=== PATIENT | male | born 1990 | race Caucasian/White ===

== ENCOUNTER 2019-08-03 12:15 | Observation (INO) | payer OTHER ==
[~2019-08-03] VITALS: Ht 182.9 cm; Wt 67.0 kg
[~2019-08-03 12:15] MED LIST: FAMO20TA8 PO; INSU100V36 SQ; INSU100V9 SQ
[2019-08-03] MEDS ORDERED: ondansetron/PF 4mg/2ml inj IV STA (13:04)
[2019-08-03] MEDS ORDERED: normal saline 1000ml 1,000 ML IV STA (13:04)
--- NOTE | 2019-08-03 13:06 | NUR ---
BREAK NOTE:SPOKE TO DR. HOFFMAN REGARDING PATIENT,MADE AWARE THAT PATIENT IS HAVING 10/10 INTRASCTABLE ABDOMINAL PAIN.NEW ORDER NOTED AND CARRIED OUT.
[2019-08-03] MEDS ORDERED: morphine 4 MG/ML inj SYRINge IV STA (13:08)
[2019-08-03] MEDS ORDERED: ondansetron/PF 4mg/2ml inj IV ONE (13:40)
[2019-08-03] MEDS ORDERED: morphine 4 MG/ML inj SYRINge IV ONE (13:40)
[2019-08-03] MEDS ORDERED: normal saline 1000ML IV soln IVB ONE (13:40)
[2019-08-03 13:55] LABS: BASOPHILS # (AUTO) 0.1 X10'3 (0-0.2); BASOPHILS % (AUTO) 0.8 % (0-1); EOSINOPHILS # (AUTO) 0.4 X10'3 (0-0.9); EOSINOPHILS % (AUTO) 4.6 % (0-6); HEMATOCRIT 47.7 % (42.0-52.0); HEMOGLOBIN 15.7 g/dl (14.0-17.9); LYMPHOCYTES # (AUTO) 1.9 X10'3 (1.1-4.8); LYMPHOCYTES % (AUTO) 24.2 % (21-51); MEAN CORPUSCULAR HEMOGLOBIN 27.9 PG (27.0-31.0); MEAN CORPUSCULAR VOLUME 84.6 FL (78-98); MEAN PLATELET VOLUME 9.5 FL (7.4-10.4); MONOCYTES # (AUTO) 0.5 X10'3 (0-0.9); MONOCYTES % (AUTO) 5.8 % (2-12); NEUTROPHILS # (AUTO) 5.1 X10'3 (1.8-7.7); NEUTROPHILS % (AUTO) 64.6 % (42-75); PLATELET COUNT 281 X10'3 (140-440); RED BLOOD COUNT 5.64 X10'6 (4.70-6.10); RED CELL DISTRIBUTION WIDTH 13.4 % (11.5-14.5); WHITE BLOOD COUNT 7.9 X10'3 (4.5-11.0)
[2019-08-03 14:12] LABS: ALANINE AMINOTRANSFERASE 37 U/L (12-78); ALBUMIN 4.8 G/DL (3.4-5.0); ALBUMIN/GLOBULIN RATIO 1.4 (1.1-1.5); ALKALINE PHOSPHATASE 63 IU/L (46-116); ANION GAP 23 (8-16); ASPARTATE AMINO TRANSFERASE 18 U/L (10-37); BLOOD UREA NITROGEN 20 MG/DL (7-18); CALCIUM 10.1 MG/DL (8.5-10.1); CHLORIDE 95 MMOL/L (99-107); CREATININE 1.11 MG/DL (0.60-1.10); ETHANOL < 0.010 GM/DL (0.0-0.010); GLUCOSE 376 MG/DL (70-104); LIPASE < 50 U/L (73-393); POTASSIUM 5.2 MMOL/L (3.5-5.1); SODIUM 134 MMOL/L (135-145); TOTAL CARBON DIOXIDE 15.8 MMOL/L (24-32); TOTAL PROTEIN 8.2 G/DL (6.4-8.2); eGFR 79 ML/MIN
--- NOTE | 2019-08-03 14:15 | NUR ---
pt is displaying pain and verbalizing it at 10/10, pt's family states that dilaudid is what works for the pt, provider was made aware, no new orders received.
--- NOTE | 2019-08-03 14:30 | NUR ---
Spoke to Dr. Titus regarding samir's request for dilaudid since morphine did not help alleviate patient's pain,per Dr. Titus he will not order dilaudid because we dont have Md errol made aware that samir/armored service technician said she called pharmacy and that "they will get it ready for her when order is available".No new order at this time.
[2019-08-03] MEDS ORDERED: insulin regular, human 10 units/0.1 ml syringe IV ONE ×2 (14:35→16:25)
[2019-08-03] MEDS ORDERED: HYDROmorphone 1 mg/ml syringe IV ONE (14:45)
[2019-08-03] MEDS ORDERED: metoclopramide 5 mg/ml inj IV ONE ×2 (14:50→16:25)
[2019-08-03 15:31] LABS: CLARITY,URINE CLEAR (Clear); COLOR,URINE YELLOW (Yellow); GLUCOSE, URINE 500 mg/dl (Neg); KETONES,URINE >=80 mg/dl (Neg); LEUKOCYTE ESTERASE ,URINE NEGATIVE (Neg); NITRITES, URINE NEGATIVE (Neg); OCCULT BLOOD,URINE TRACE-INTACT (Neg); PH,URINE 5.5 (4.8-8.0); PROTEIN,URINE NEGATIVE (Neg); UROBILINOGEN,URINE 0.2 E.U/dL (0.2-1.0)
[2019-08-03 15:32] LABS: UA COLLECTION TYPE URINAL
[2019-08-03 15:42] LABS: BACTERIA,URINE NONE SEEN /HPF (Neg); RBC,URINE NONE SEEN /HPF (0-2); SQUAMOUS EPITHELIAL CELL,UR FEW /LPF (FEW)
[2019-08-03 15:45] LABS: WBC,URINE 0-4 /HPF (0-4)
--- NOTE | 2019-08-03 16:43 | NUR ---
Spoke with pt. re insulin administration and insulin pump being on. Pt. instructed to turn off pump at this time and pt. was agreeable. Blood glucose to be monitored by nursing staff while hospitalized.
[2019-08-03] MEDS ORDERED: INSU100V11 (17:15)
[2019-08-03] MEDS ORDERED: METO5TAB98 PO (17:15)
[2019-08-03] MEDS ORDERED: HUMALOG INJ (17:31)
[2019-08-03] MEDS ORDERED: PUMP INJ (17:31)
[2019-08-03] MEDS ORDERED: sodium bicarbonate (8.4%) inj. 50 MEQ in dextrose 5% water 500ml 250 ML IV PRN (17:48)
[2019-08-03] MEDS ORDERED: insulin regular, DKA only 100 UNIT in normal saline 100ml IV soln 99 ML IV SCH ×2 (17:48)
[2019-08-03] MEDS ORDERED: normal saline 1000ml 1,000 ML IV SCH (17:48)
[2019-08-03] MEDS ORDERED: sodium bicarbonate (8.4%) inj. 100 MEQ in dextrose 5% water 500ml 500 ML IV PRN (17:48)
[2019-08-03] MEDS ORDERED: sodium phosphate inj. 15 MMOL in dextrose 5%-water 150 ML IV PRN (17:50)
[2019-08-03] MEDS ORDERED: sodium phosphate inj. 30 MMOL in dextrose 5%-water 250 ML IV PRN (17:50)
[2019-08-03] MEDS ORDERED: insulin regular, human vial - multi-dose IV PRN (17:50)
[2019-08-03] MEDS ORDERED: potassium Cl 20 mEq SR tablet PO PRN ×2 (17:50)
[2019-08-03] MEDS ORDERED: Neutra Phos packet PO PRN (17:50)
[2019-08-03] MEDS ORDERED: potassium CL 10mEq/100ml bag 100 ML IV PRN ×2 (17:50)
[2019-08-03] MEDS ORDERED: HYDROmorphone inj. 0.5 MG/0.5 ML DISP.SYRIN IV PRN (17:50)
[2019-08-03] MEDS ORDERED: bisacodyl 10mg suppository rectal RC PRN (17:50)
[2019-08-03] MEDS ORDERED: metoclopramide 5 mg/ml inj IV PRN (17:50)
[2019-08-03] MEDS ORDERED: acetaminophen 325mg tablet PO PRN (17:50)
[2019-08-03] MEDS ORDERED: HYDROmorphone 1 mg/ml syringe IV PRN (17:50)
[2019-08-03 17:56] LABS: ABG BASE EXCESS -14.8 mmol/L (-2.0-3.0); ABG HCO3 11.4 mmol/L (22.0-26.0); ABG OXYGEN SATURATION 95.1 % (95-98); ABG PCO2 (T) 28.6 mmHg (35.0-45.0); ABG PH (T) 7.218 (7.350-7.450); ALLEN'S TEST Positive; FCOHb 0.6 % (0.5-1.5); FMetHb 0.4 % (0.3-1.12); FO2Hb 94.1 % (94-100); TOTAL HEMOGLOBIN 14.3 G/dl (14.0-17.9)
[2019-08-03] MEDS ORDERED: DEXTROSE IV PRN ×2 (18:12→18:14)
[2019-08-03] MEDS ORDERED: SODIUM BICARBONATE IV PRN ×2 (18:12→18:14)
[2019-08-03] MEDS ORDERED: WATER IV PRN ×2 (18:12→18:14)
[2019-08-03] MEDS: normal saline 1000ml 1,000 ML IV SCH ×2 (18:18→19:01)
[2019-08-03 18:30] LABS: ALBUMIN 3.6 G/DL (3.4-5.0); ANION GAP 17 (8-16); BLOOD UREA NITROGEN 15 MG/DL (7-18); BUN/CREATININE RATIO 15.2 (5.4-32.0); CALCIUM 7.7 MG/DL (8.5-10.1); CHLORIDE 106 MMOL/L (99-107); CREATININE 0.99 MG/DL (0.60-1.10); GLUCOSE 229 MG/DL (70-104); PHOSPHORUS 4.1 MG/DL (2.3-4.5); POTASSIUM 4.8 MMOL/L (3.5-5.1); SODIUM 139 MMOL/L (135-145); TOTAL CARBON DIOXIDE 15.8 MMOL/L (24-32); eGFR 90 ML/MIN
[2019-08-03 19:00] VITALS: BP 121/77
--- NOTE | 2019-08-03 19:00 | NUR ---
Received report from ENERGY ENGINEER. Patient brought to room by brianna, but able to ambulate to bed without assistance. Vitals taken, tele placed. Patient was oriented to room and given call light/ Visitors were at bedside. Plan of care discussed, will continue to monitor.
[2019-08-03] MEDS: potassium CL 20mEq in D5-1/2NS 1,000 ML IV PRN (19:13)
--- NOTE | 2019-08-03 19:30 | NUR ---
Patient reported nausea; Reglan administered as ordered.
[2019-08-03] MEDS: K and/or MAG REPLACEMENT MC SCH (19:42)
--- NOTE | 2019-08-03 20:00 | NUR ---
Patient reports relief of nausea.
[2019-08-03 22:00] VITALS: BP 96/49
[2019-08-03 22:25] LABS: ALBUMIN 3.3 G/DL (3.4-5.0); ANION GAP 11 (8-16); BLOOD UREA NITROGEN 17 MG/DL (7-18); BUN/CREATININE RATIO 18.3 (5.4-32.0); CALCIUM 7.9 MG/DL (8.5-10.1); CHLORIDE 108 MMOL/L (99-107); CREATININE 0.93 MG/DL (0.60-1.10); GLUCOSE 187 MG/DL (70-104); PHOSPHORUS 2.9 MG/DL (2.3-4.5); POTASSIUM 4.2 MMOL/L (3.5-5.1); SODIUM 139 MMOL/L (135-145); TOTAL CARBON DIOXIDE 19.7 MMOL/L (24-32); eGFR > 90 ML/MIN
[2019-08-04] MEDS: potassium CL 20mEq in D5-1/2NS 1,000 ML IV PRN ×3 (00:12→01:46)
[2019-08-04 02:21] LABS: ALBUMIN 3.2 G/DL (3.4-5.0); ANION GAP 7 (8-16); BLOOD UREA NITROGEN 13 MG/DL (7-18); BUN/CREATININE RATIO 14.6 (5.4-32.0); CALCIUM 7.4 MG/DL (8.5-10.1); CHLORIDE 109 MMOL/L (99-107); CREATININE 0.89 MG/DL (0.60-1.10); GLUCOSE 82 MG/DL (70-104); PHOSPHORUS 2.8 MG/DL (2.3-4.5); SODIUM 141 MMOL/L (135-145); TOTAL CARBON DIOXIDE 24.6 MMOL/L (24-32); eGFR > 90 ML/MIN
[2019-08-04 02:25] LABS: BASOPHILS # (AUTO) 0.1 X10'3 (0-0.2); BASOPHILS % (AUTO) 0.5 % (0-1); EOSINOPHILS # (AUTO) 0.4 X10'3 (0-0.9); HEMATOCRIT 37.6 % (42.0-52.0); HEMOGLOBIN 12.7 g/dl (14.0-17.9); LYMPHOCYTES # (AUTO) 3.4 X10'3 (1.1-4.8); LYMPHOCYTES % (AUTO) 32.4 % (21-51); MEAN CORPUSCULAR HEMOGLOBIN 28.5 PG (27.0-31.0); MEAN CORPUSCULAR HGB CONC 33.8 g/dL (33.0-36.5); MEAN CORPUSCULAR VOLUME 84.4 FL (78-98); MEAN PLATELET VOLUME 8.6 FL (7.4-10.4); MONOCYTES # (AUTO) 0.8 X10'3 (0-0.9); MONOCYTES % (AUTO) 7.7 % (2-12); NEUTROPHILS # (AUTO) 5.7 X10'3 (1.8-7.7); NEUTROPHILS % (AUTO) 55.4 % (42-75); PLATELET COUNT 212 X10'3 (140-440); RED BLOOD COUNT 4.45 X10'6 (4.70-6.10); RED CELL DISTRIBUTION WIDTH 13.3 % (11.5-14.5); WHITE BLOOD COUNT 10.4 X10'3 (4.5-11.0)
[2019-08-04 03:00] VITALS: BP 93/47
--- NOTE | 2019-08-04 03:05 | NUR ---
Called Dr. Pérez because patient's blood glucose decreased to 82 despite D5 1/2NS being increased to 250mL/hr. Received new order to decrease the insulin drip to 3 units/hr and leave IVF at 250mL/hr
[2019-08-04 03:21] LABS: MAGNESIUM 1.7 MG/DL (1.5-2.4)
--- NOTE | 2019-08-04 04:14 | NUR ---
Called Dr. Pérez because patient's glucose decreased to 70 despite previous decrease of insulin drip to 3 units/hr and continuing to infuse D5 1/2NS @ 250mL/hr. Received order to d/c the insulin drip but to leave the IVF infusing for another hour since patient was lower and continue to accucheck patient q1 hour.
[2019-08-04] MEDS ORDERED: dextrose 50%-water 50ml dispensing syringe IV PRN ×2 (04:25)
[2019-08-04] MEDS ORDERED: dextrose ORAL solution 15 GM/59 ML bottle PO PRN ×2 (04:25)
--- NOTE | 2019-08-04 05:15 | NUR ---
Student Medication Administration: For this medication-pass time frame, all medication were reviewed, dispensed, administered and documented per hospital policy by Maida PRESTON. Student documentation: I have reviewed and agree with all interventions, assessments performed and documented by Maida PRESTON.
--- NOTE | 2019-08-04 05:17 | NUR ---
[place] Medication Administration: For this medication-pass time frame, all medication were reviewed, dispensed, administered and documented per hospital policy by Ailyn HICKEY. [place] documentation: I have reviewed and agree with all interventions, assessments performed and documented by Ailyn HICKEY.
[2019-08-04 06:00] VITALS: BP 102/64
--- NOTE | 2019-08-04 06:15 | NUR ---
Problems reprioritized. Patient report given, questions answered & plan of care reviewed with Christi HICKEY.
--- NOTE | 2019-08-04 06:24 | NUR ---
Patient in room PCU 3018. I have received report from Anabel HICKEY and had the opportunity to ask questions and assume patient care.
--- NOTE | 2019-08-04 07:37 | NUR ---
PAGER ID: [phone] MESSAGE: [id number] Sergio Chaudhary [phone] BS 160. Off insulin drip. Do you want to hold his AM tray or let him eat? Thanks! Clarke Justin [phone]
[2019-08-04] MEDS: K and/or MAG REPLACEMENT MC SCH (08:00)
[2019-08-04] MEDS: insulin Lispro (HumaLOG) vial - multi-dose SQ SCH ×2 (08:56→10:04)
--- NOTE | 2019-08-04 09:45 | NUR ---
Paged Dr. Leblanc regarding 300 blood sugar after covering breakfast with 4 units. Per MD , give bolus of Humalog per insulin pump dosing parameters to cover. Cont. to monitor blood sugar Q1hr. Basic metabolic panel ordered stat. Pt. is asymptomatic at this time and in no apparent distress. Friends at bedside.
[2019-08-04 11:00] VITALS: BP 88/56
[2019-08-04 11:11] LABS: ALBUMIN 3.6 G/DL (3.4-5.0); ANION GAP 11 (8-16); BLOOD UREA NITROGEN 12 MG/DL (7-18); CHLORIDE 104 MMOL/L (99-107); GLUCOSE 241 MG/DL (70-104); POTASSIUM 4.2 MMOL/L (3.5-5.1); SODIUM 139 MMOL/L (135-145); TOTAL CARBON DIOXIDE 23.6 MMOL/L (24-32); eGFR 89 ML/MIN
[2019-08-04 11:19] LABS: CALCIUM 8.6 MG/DL (8.5-10.1)
--- NOTE | 2019-08-04 12:30 | NUR ---
Deana SPRING at pt bedside. Plans to discharge pt later this afternoon. Per MD, Q1h accuchecks no longer needs to be continued.
--- NOTE | 2019-08-04 13:07 | NUR ---
DM consult: Pt with hx T1DM and gastroparesis, current A1c 9.6 admitted with DKA. Noted that patient's A1c is down from 11.5 in May of last year. Pt seen at bedside reports seeing an MD q 3 months for DM management and reports taking insulin per rx without difficulties. Pt reports being unsure of why his BG levels became so high that resulted in DKA stating he admin 50 units of insulin before admit. Pt reports he takes Reglan at home for gastroparesis. Pt provided with written and verbal gastroparesis nutrition therapy education with a list of fiber content in foods as well as DM education with referral to outpatient DM class and RD contact information. Pt endorses a good appetite which is evident with documented 75-100% PO intake on CHO controlled diet. Pt denies food allergies, difficulty chewing/swallowing, or constipation/diarrhea. [facility] 08/04. Will continue to follow. Recommendations: 1) Continue CHO controlled diet 2) Wt per rx Addendum: 08/04/19 at [address] Amended: Links added.
--- NOTE | 2019-08-04 13:43 | NUR ---
Per MD stable for discharge home. Discharge instructions reviewed with patient. Tele monitoring discontinued, PIV discontinued; cannula intact. Belongings sent with patient and transferred to private vehicle via wheel chair accompanied by pt. mother.
[2019-08-04] MEDS ORDERED: insulin regular, DKA only 100 UNIT in normal saline 100ml IV soln 99 ML IV SCH ×2 (17:48)
[2019-08-04] MEDS ORDERED: insulin glargine (Lantus) pen - multi-dose SQ SCH (21:00)
== END 2019-08-04 13:43 | disposition home or self-care (01) ==
LOC: ER 12:15 → PCU 3S 18:50
PROVIDERS: ADMIT Family Medicine; ATTEND Family Medicine
DX: R11.2 Nausea with vomiting, unspecified (principal); R10.84 Generalized abdominal pain; E10.10 Type 1 diabetes mellitus with ketoacidosis without coma; E10.43 Type 1 diabetes mellitus with diabetic autonomic (poly)neuropathy; K31.84 Gastroparesis; J45.909 Unspecified asthma, uncomplicated; N28.9 Disorder of kidney and ureter, unspecified; E87.1 Hypo-osmolality and hyponatremia; E87.5 Hyperkalemia; Z96.41 Presence of insulin pump (external) (internal)
CPT/HCPCS: 36415; 36600; 80048; 80053; 80320; 81001; 82803; 82948; 83036; 83690; 83735; 84100; 85018; 85025; 96361; 96365; 96366; 96372; 96375; 96376; 99284; G0378; J1170; J1815; J2270; J2405; J2765; J3480; J7030

== ENCOUNTER 2019-12-11 14:13 | Emergency (ER) | payer OTHER ==
[~2019-12-11] VITALS: Ht 182.9 cm; Wt 69.0 kg
[~2019-12-11 14:13] MED LIST changes: -FAMO20TA8 PO; +HUMALOG INJ; -INSU100V36 SQ; -INSU100V9 SQ; +PUMP INJ
[2019-12-11] MEDS ORDERED: ondansetron/PF 4mg/2ml inj IV ONE (15:05)
[2019-12-11] MEDS ORDERED: normal saline 1000ML IV soln IVB ONE (15:05)
[2019-12-11] MEDS ORDERED: pantoprazole 40 MG vial IV ONE (15:05)
[2019-12-11 15:30] LABS: BASOPHILS % (AUTO) 0.3 % (0-1); EOSINOPHILS % (AUTO) 0 % (0-6); HEMATOCRIT 44.1 % (42.0-52.0); HEMOGLOBIN 14.9 g/dl (14.0-17.9); LYMPHOCYTES # (AUTO) 0.6 X10'3 (1.1-4.8); LYMPHOCYTES % (AUTO) 19.1 % (21-51); MEAN CORPUSCULAR HEMOGLOBIN 28.7 PG (27.0-31.0); MEAN CORPUSCULAR HGB CONC 33.9 g/dL (33.0-36.5); MEAN CORPUSCULAR VOLUME 84.7 FL (78-98); MEAN PLATELET VOLUME 9.4 FL (7.4-10.4); MONOCYTES # (AUTO) 0.5 X10'3 (0-0.9); MONOCYTES % (AUTO) 15.4 % (2-12); NEUTROPHILS # (AUTO) 2.2 X10'3 (1.8-7.7); NEUTROPHILS % (AUTO) 65.2 % (42-75); PLATELET COUNT 153 X10'3 (140-440); RED BLOOD COUNT 5.21 X10'6 (4.70-6.10); RED CELL DISTRIBUTION WIDTH 13.2 % (11.5-14.5); WHITE BLOOD COUNT 3.3 X10'3 (4.5-11.0)
[2019-12-11 15:42] LABS: ALANINE AMINOTRANSFERASE 29 U/L (12-78); ALBUMIN/GLOBULIN RATIO 1.2 (1.1-1.5); ALKALINE PHOSPHATASE 56 IU/L (46-116); ANION GAP 14 (8-16); ASPARTATE AMINO TRANSFERASE 25 U/L (10-37); BILIRUBIN,TOTAL 0.3 MG/DL (0.1-1.0); BLOOD UREA NITROGEN 17 MG/DL (7-18); BUN/CREATININE RATIO 14.8 (5.4-32.0); CALCIUM 8.5 MG/DL (8.5-10.1); CHLORIDE 101 MMOL/L (99-107); CREATININE 1.15 MG/DL (0.60-1.10); GLUCOSE 100 MG/DL (70-104); SODIUM 140 MMOL/L (135-145); TOTAL CARBON DIOXIDE 24.8 MMOL/L (24-32); TOTAL PROTEIN 7.4 G/DL (6.4-8.2); eGFR 76 ML/MIN
[2019-12-11 15:47] LABS: CLARITY,URINE SLIGHTLY CLOUDY (Clear); COLOR,URINE YELLOW (Yellow); GLUCOSE, URINE 100 mg/dl (Neg); KETONES,URINE >=80 mg/dl (Neg); LEUKOCYTE ESTERASE ,URINE NEGATIVE (Neg); NITRITES, URINE NEGATIVE (Neg); OCCULT BLOOD,URINE NEGATIVE (Neg); PROTEIN,URINE 30 mg/dl (Neg); UROBILINOGEN,URINE 0.2 E.U/dL (0.2-1.0)
[2019-12-11 15:57] LABS: UA COLLECTION TYPE VOIDED
[2019-12-11 15:58] LABS: MUCUS STRANDS MODERATE /LPF (Neg); SQUAMOUS EPITHELIAL CELL,UR FEW /LPF (FEW)
[2019-12-11 15:59] LABS: BACTERIA,URINE 1+ /HPF (Neg)
[2019-12-11 16:03] LABS: PLATELET ESTIMATE NORMAL; TOTAL CELLS COUNTED 100
[2019-12-11 16:07] LABS: URINE AMPHETAMINE SCREEN NEGATIVE (Neg); URINE BARBITUATE SCREEN NEGATIVE (Neg); URINE BENZODIAZEPINES SCREEN NEGATIVE (Neg); URINE CANNABINOID SCREEN NEGATIVE (Neg); URINE COCAINE SCREEN NEGATIVE (Neg); URINE METHADONE SCREEN NEGATIVE (Neg); URINE OPIATE SCREEN NEGATIVE (Neg); URINE PHENCYCLIDINE SCREEN NEGATIVE (Neg)
[2019-12-11] MEDS ORDERED: morphine 2 MG/ML inj. syringe IV ONE (16:20)
[2019-12-11] MEDS ORDERED: HYDROmorphone inj. 0.5 MG/0.5 ML DISP.SYRIN IV ONE (16:35)
[2019-12-11] MEDS ORDERED: CEPH500C5 PO (18:05)
[2019-12-11] MEDS ORDERED: CefTRIAXone/D5W-Rocephin 1gm 50 ML IV ONE (18:05)
[2019-12-11 19:09] VITALS: BP 117/65
[2019-12-12] MEDS ORDERED: ONDA4TAB12 PO (05:52)
[2019-12-12] MEDS ORDERED: TAM75C PO (05:52)
== END 2019-12-11 19:10 | disposition home or self-care (01) ==
LOC: ER 14:13
DX: J11.1 Influenza due to unidentified influenza virus with other respiratory manifestations (principal); N39.0 Urinary tract infection, site not specified; J45.909 Unspecified asthma, uncomplicated; E11.9 Type 2 diabetes mellitus without complications; Z88.5 Allergy status to narcotic agent; Z79.2 Long term (current) use of antibiotics; Z79.4 Long term (current) use of insulin
CPT/HCPCS: 36415; 71045; 80053; 80305; 81001; 82009; 82948; 85025; 87088; 87502; 87503; 96365; 96375; 99284; C9113; J0696; J1170; J2405; J7030

== ENCOUNTER 2019-12-12 04:10 | Inpatient (IN) | payer OTHER ==
[~2019-12-12] VITALS: Ht 182.9 cm; Wt 69.0 kg
[~2019-12-12 04:10] MED LIST changes: +CEPH500C5 PO
[2019-12-12] MEDS ORDERED: metoclopramide 5 mg/ml inj IV ONE (04:50)
[2019-12-12] MEDS ORDERED: normal saline 1000ML IV soln IVB ONE ×3 (04:50→05:45)
[2019-12-12] MEDS ORDERED: LORazepam 2 mg/ml vial IV ONE (04:50)
[2019-12-12] MEDS ORDERED: diphenhydrAMINE 50 mg/ml inj IV ONE (04:50)
[2019-12-12] MEDS ORDERED: insulin regular, human 10 units/0.1 ml syringe SQ ONE (05:15)
--- NOTE | 2019-12-12 05:30 | NUR ---
pt unable to provide urine sample at this time. pt instructed to provide ua when able to. pt verbalizes understanding. pt was in pain and in discomfort. he was given iv ativan, benadryl and reglan. pt now resting comfortably.
[2019-12-12 05:31] LABS: BASOPHILS % (AUTO) 0.3 % (0-1); EOSINOPHILS % (AUTO) 0.1 % (0-6); HEMATOCRIT 45.9 % (42.0-52.0); HEMOGLOBIN 15.2 g/dl (14.0-17.9); LYMPHOCYTES # (AUTO) 0.6 X10'3 (1.1-4.8); MEAN CORPUSCULAR HEMOGLOBIN 28.7 PG (27.0-31.0); MEAN CORPUSCULAR HGB CONC 33.1 g/dL (33.0-36.5); MEAN CORPUSCULAR VOLUME 86.7 FL (78-98); MONOCYTES # (AUTO) 0.4 X10'3 (0-0.9); MONOCYTES % (AUTO) 11.3 % (2-12); NEUTROPHILS # (AUTO) 2.4 X10'3 (1.8-7.7); NEUTROPHILS % (AUTO) 71.3 % (42-75); PLATELET COUNT 132 X10'3 (140-440); RED BLOOD COUNT 5.29 X10'6 (4.70-6.10); RED CELL DISTRIBUTION WIDTH 13.4 % (11.5-14.5); WHITE BLOOD COUNT 3.3 X10'3 (4.5-11.0)
[2019-12-12 05:35] LABS: ALANINE AMINOTRANSFERASE 36 U/L (12-78); ALBUMIN 3.9 G/DL (3.4-5.0); ALBUMIN/GLOBULIN RATIO 1.1 (1.1-1.5); ALKALINE PHOSPHATASE 58 IU/L (46-116); ANION GAP 25 (8-16); BILIRUBIN,TOTAL 0.6 MG/DL (0.1-1.0); BLOOD UREA NITROGEN 19 MG/DL (7-18); BUN/CREATININE RATIO 14.4 (5.4-32.0); CALCIUM 8.3 MG/DL (8.5-10.1); CHLORIDE 96 MMOL/L (99-107); CREATININE 1.32 MG/DL (0.60-1.10); GLUCOSE 349 MG/DL (70-104); LIPASE < 50 U/L (73-393); SODIUM 133 MMOL/L (135-145); TOTAL PROTEIN 7.3 G/DL (6.4-8.2); eGFR 65 ML/MIN
[2019-12-12 05:39] LABS: ASPARTATE AMINO TRANSFERASE 53 U/L (10-37); POTASSIUM 5.6 MMOL/L (3.5-5.1)
[2019-12-12 05:41] LABS: TOTAL CARBON DIOXIDE 12.1 MMOL/L (24-32)
[2019-12-12] MEDS ORDERED: insulin regular, human 10 units/0.1 ml syringe IV ONE (05:45)
[2019-12-12] MEDS ORDERED: CefTRIAXone 2gm/D5W 50ml 50 ML IV ONE (05:50)
[2019-12-12] MEDS ORDERED: ONDA4TAB12 PO (05:52)
[2019-12-12] MEDS ORDERED: TAM75C PO (05:52)
[2019-12-12] MEDS ORDERED: oseltamivir phos 75mg capsule PO ONE (05:55)
[2019-12-12] MEDS ORDERED: fentaNYL/PF 50MCG/1 ML 2ML syringe IV ONE (06:35)
[2019-12-12] MEDS ORDERED: Insulin Reg/NS 100units/100mL 100 ML IV PRN (06:39)
[2019-12-12] MEDS ORDERED: sodium bicarbonate (8.4%) inj. 100 MEQ in dextrose 5% water 500ml 500 ML IV PRN (07:53)
[2019-12-12] MEDS ORDERED: sodium bicarbonate (8.4%) inj. 50 MEQ in dextrose 5% water 500ml 250 ML IV PRN (07:53)
[2019-12-12] MEDS ORDERED: potassium Cl 20 mEq SR tablet PO PRN ×4 (07:55)
[2019-12-12] MEDS ORDERED: magnesium Cl slow-release 64mg tablet PO PRN (07:55)
[2019-12-12] MEDS ORDERED: Neutra Phos packet PO PRN (07:55)
[2019-12-12] MEDS ORDERED: sodium phosphate inj. 15 MMOL in dextrose 5%-water 150 ML IV PRN (07:55)
[2019-12-12] MEDS ORDERED: magnesium hydroxide 30ml (MOM) UD suspension PO PRN (07:55)
[2019-12-12] MEDS ORDERED: mag hydrox/Alum hydrox/simeth 30ml oral suspension PO PRN (07:55)
[2019-12-12] MEDS ORDERED: magnesium 4gm in 100ml NS 100 ML IV PRN (07:55)
[2019-12-12] MEDS ORDERED: acetaminophen 325mg tablet PO PRN ×2 (07:55)
[2019-12-12] MEDS ORDERED: potassium CL 10mEq/100ml bag 100 ML IV PRN ×4 (07:55)
[2019-12-12] MEDS ORDERED: insulin regular, human vial - multi-dose IV PRN (07:55)
[2019-12-12] MEDS ORDERED: magnesium 2GM in 50ml NS 50 ML IV PRN (07:55)
[2019-12-12] MEDS ORDERED: sodium phosphate inj. 30 MMOL in dextrose 5%-water 250 ML IV PRN (07:55)
[2019-12-12] MEDS: enoxaparin 40mg/0.4ml syringe SQ SCH (08:00)
[2019-12-12] MEDS: K and/or MAG REPLACEMENT MC SCH ×4 (08:00→20:00)
[2019-12-12 08:34] LABS: CLARITY,URINE CLEAR (Clear); COLOR,URINE STRAW (Yellow); GLUCOSE, URINE 500 mg/dl (Neg); KETONES,URINE >=80 mg/dl (Neg); LEUKOCYTE ESTERASE ,URINE NEGATIVE (Neg); NITRITES, URINE NEGATIVE (Neg); OCCULT BLOOD,URINE NEGATIVE (Neg); PH,URINE 5.5 (4.8-8.0); PROTEIN,URINE NEGATIVE (Neg); UROBILINOGEN,URINE 0.2 E.U/dL (0.2-1.0)
[2019-12-12 08:45] LABS: UA COLLECTION TYPE URINAL
[2019-12-12] MEDS ORDERED: Insulin Reg/NS 100units/100mL 100 ML IV SCH ×2 (08:53→08:56)
[2019-12-12 09:15] LABS: ALANINE AMINOTRANSFERASE 31 U/L (12-78); ALKALINE PHOSPHATASE 48 IU/L (46-116); ANION GAP 21 (8-16); ASPARTATE AMINO TRANSFERASE 37 U/L (10-37); BILIRUBIN,TOTAL 0.3 MG/DL (0.1-1.0); BLOOD UREA NITROGEN 17 MG/DL (7-18); BUN/CREATININE RATIO 13.4 (5.4-32.0); CALCIUM 7.1 MG/DL (8.5-10.1); CHLORIDE 103 MMOL/L (99-107); CREATININE 1.27 MG/DL (0.60-1.10); GLUCOSE 228 MG/DL (70-104); POTASSIUM 4.4 MMOL/L (3.5-5.1); SODIUM 137 MMOL/L (135-145); eGFR 68 ML/MIN
[2019-12-12 09:20] LABS: TOTAL CARBON DIOXIDE 12.7 MMOL/L (24-32)
[2019-12-12] MEDS: normal saline 1000ml 1,000 ML IV SCH ×5 (09:23→23:53)
--- NOTE | 2019-12-12 09:45 | NUR ---
Patient in room ED 1. I have received report from Miguel Angel HICKEY and had the opportunity to ask questions and assume patient care. Awaiting patient's arrival from ED.
[2019-12-12] MEDS: ondansetron/PF 4mg/2ml inj IV PRN ×2 (09:48→18:42)
--- NOTE | 2019-12-12 09:51 | NUR ---
DID NOT ADMIN THE MYREDLIN D/T A BG OF 189. MADE PCU RECEIVING RN AWARE, WILL SEND MED UP WITH PT.
[2019-12-12 10:04] LABS: HEMOGLOBIN A1C 10.3 % (4.5-6.2)
[2019-12-12] MEDS: Insulin Reg/NS 100units/100mL 100 ML IV SCH (10:29)
[2019-12-12 10:30] VITALS: BP 126/86
[2019-12-12] MEDS: potassium CL 20mEq in D5-1/2NS 1,000 ML IV PRN ×2 (10:30→16:18)
--- NOTE | 2019-12-12 10:42 | NUR ---
Paged Dr. Ramirez. PAGER ID: [phone] MESSAGE: [phone] : Minoo Chaudhary. Pt is in a lot of pain and vomiting.Pt is allergic to Morphine. Can we have pain med via IV? Thanks! . Regina/Yvonne x [phone]
[2019-12-12 11:00] VITALS: BP 126/86
[2019-12-12] MEDS ORDERED: HYDROmorphone 1 mg/ml syringe IV PRN (11:00)
[2019-12-12] MEDS: HYDROmorphone inj. 0.5 MG/0.5 ML DISP.SYRIN IV PRN ×2 (11:36→18:42)
[2019-12-12 12:08] LABS: ANION GAP 17 (8-16); BLOOD UREA NITROGEN 13 MG/DL (7-18); BUN/CREATININE RATIO 11.8 (5.4-32.0); CALCIUM 6.9 MG/DL (8.5-10.1); CHLORIDE 103 MMOL/L (99-107); GLUCOSE 210 MG/DL (70-104); MAGNESIUM 1.6 MG/DL (1.5-2.4); POTASSIUM 4.8 MMOL/L (3.5-5.1); SODIUM 135 MMOL/L (135-145); TOTAL CARBON DIOXIDE 15.2 MMOL/L (24-32); eGFR 80 ML/MIN
[2019-12-12 15:00] VITALS: BP 110/79
[2019-12-12 15:37] LABS: ALBUMIN 2.8 G/DL (3.4-5.0); ANION GAP 11 (8-16); BLOOD UREA NITROGEN 11 MG/DL (7-18); CHLORIDE 104 MMOL/L (99-107); GLUCOSE 190 MG/DL (70-104); MAGNESIUM 1.7 MG/DL (1.5-2.4); POTASSIUM 4.2 MMOL/L (3.5-5.1); SODIUM 136 MMOL/L (135-145); TOTAL CARBON DIOXIDE 21.3 MMOL/L (24-32); eGFR 89 ML/MIN
--- NOTE | 2019-12-12 16:42 | NUR ---
DM consult: Pt admitted for DKA with many previous admissions for DKA. Pt admitted with A1c of 10.3. RD clinical nursing intern visited pt at bedside however pt c/o being very nauseated and vomiting. Gastroparesis and DM education with referral to CDE course and RD contact information left at bedside. Will provide verbal review when pt is more stable. Will continue to monitor. Recommendations: 1. Diet advancement to low residue, carb controlled as medically indicated 2. bowel care as needed 3. weight per rx Addendum: 12/12/19 at [address] Amended: Links added. Addendum: 12/12/19 at [address] I have reviewed and agree with note by Academic Support Director. Zeny Tao RD
[2019-12-12 18:00] VITALS: BP 114/68
--- NOTE | 2019-12-12 18:55 | NUR ---
Patient does not feel good or want to be darted at this time. Will continue to monitor.
[2019-12-12 20:09] LABS: ALBUMIN 2.7 G/DL (3.4-5.0); ANION GAP 8 (8-16); BLOOD UREA NITROGEN 9 MG/DL (7-18); BUN/CREATININE RATIO 9.3 (5.4-32.0); CALCIUM 6.9 MG/DL (8.5-10.1); CHLORIDE 105 MMOL/L (99-107); CREATININE 0.97 MG/DL (0.60-1.10); GLUCOSE 165 MG/DL (70-104); POTASSIUM 3.7 MMOL/L (3.5-5.1); SODIUM 136 MMOL/L (135-145); TOTAL CARBON DIOXIDE 23.4 MMOL/L (24-32); eGFR > 90 ML/MIN
--- NOTE | 2019-12-12 20:41 | NUR ---
Spoke with Dr. Ramirez and he said to cancel BMPs until morning labs. Check Patient's Blood Glucose and it was 134 and fluids were not running at the proper rate. Checked with CRN and I will recheck in 1 hour and change fluids if necessary at that time.
[2019-12-12] MEDS: cephalexin 500mg capsule PO SCH (21:00)
--- NOTE | 2019-12-12 21:30 | NUR ---
Spoke with Dr. Evans, new order obtained for D10 1/2 NS with 20 Meq K.
[2019-12-12 22:00] VITALS: BP 112/75
[2019-12-12] MEDS: Potassium Cl inj 20 MEQ in DEXTROSE 10 % AND 0.45 % NACL 1,000 ML IV SCH (22:39)
[2019-12-13 02:34] VITALS: BP 98/62
[2019-12-13] MEDS: normal saline 1000ml 1,000 ML IV SCH ×6 (03:53→23:53)
[2019-12-13] MEDS: Insulin Reg/NS 100units/100mL 100 ML IV SCH ×2 (04:26→23:53)
[2019-12-13] MEDS: ondansetron/PF 4mg/2ml inj IV PRN ×3 (04:29→19:41)
[2019-12-13] MEDS: HYDROmorphone inj. 0.5 MG/0.5 ML DISP.SYRIN IV PRN (04:29)
[2019-12-13 05:13] LABS: BASOPHILS % (AUTO) 0.2 % (0-1); EOSINOPHILS % (AUTO) 0.2 % (0-6); HEMATOCRIT 36.4 % (42.0-52.0); HEMOGLOBIN 12.6 g/dl (14.0-17.9); LYMPHOCYTES # (AUTO) 1.2 X10'3 (1.1-4.8); LYMPHOCYTES % (AUTO) 38.3 % (21-51); MEAN CORPUSCULAR HEMOGLOBIN 29.4 PG (27.0-31.0); MEAN CORPUSCULAR HGB CONC 34.7 g/dL (33.0-36.5); MEAN CORPUSCULAR VOLUME 84.6 FL (78-98); MEAN PLATELET VOLUME 9.2 FL (7.4-10.4); MONOCYTES # (AUTO) 0.4 X10'3 (0-0.9); MONOCYTES % (AUTO) 12.3 % (2-12); NEUTROPHILS # (AUTO) 1.5 X10'3 (1.8-7.7); PLATELET COUNT 119 X10'3 (140-440); RED BLOOD COUNT 4.31 X10'6 (4.70-6.10); RED CELL DISTRIBUTION WIDTH 12.9 % (11.5-14.5); WHITE BLOOD COUNT 3.2 X10'3 (4.5-11.0)
[2019-12-13 05:21] LABS: ALBUMIN 2.7 G/DL (3.4-5.0); ANION GAP 8 (8-16); BLOOD UREA NITROGEN 8 MG/DL (7-18); BUN/CREATININE RATIO 8.1 (5.4-32.0); CALCIUM 7.3 MG/DL (8.5-10.1); CHLORIDE 104 MMOL/L (99-107); CREATININE 0.99 MG/DL (0.60-1.10); GLUCOSE 233 MG/DL (70-104); MAGNESIUM 1.6 MG/DL (1.5-2.4); PHOSPHORUS 1.8 MG/DL (2.3-4.5); POTASSIUM 3.6 MMOL/L (3.5-5.1); SODIUM 135 MMOL/L (135-145); TOTAL CARBON DIOXIDE 23.2 MMOL/L (24-32); eGFR 90 ML/MIN
[2019-12-13] MEDS: Potassium Cl inj 20 MEQ in DEXTROSE 10 % AND 0.45 % NACL 1,000 ML IV SCH ×2 (05:42→17:00)
[2019-12-13 06:00] VITALS: BP 95/50
--- NOTE | 2019-12-13 06:23 | NUR ---
Problems reprioritized. Patient report given, questions answered & plan of care reviewed with Dora HICKEY. Patient stable at transfer of care, insulin gtt and fluids running per protocol.
[2019-12-13] MEDS: potassium CL 20mEq in D5-1/2NS 1,000 ML IV PRN (06:59)
[2019-12-13] MEDS: enoxaparin 40mg/0.4ml syringe SQ SCH (08:00)
[2019-12-13] MEDS: K and/or MAG REPLACEMENT MC SCH ×4 (08:00→20:00)
[2019-12-13] MEDS: cephalexin 500mg capsule PO SCH ×4 (08:30→21:59)
[2019-12-13 11:00] VITALS: BP 100/63
[2019-12-13 15:00] VITALS: BP 98/51
[2019-12-13 17:31] LABS: ALBUMIN 2.7 G/DL (3.4-5.0); ANION GAP -1 (8-16); BLOOD UREA NITROGEN 5 MG/DL (7-18); BUN/CREATININE RATIO 5.9 (5.4-32.0); CALCIUM 7.7 MG/DL (8.5-10.1); CHLORIDE 107 MMOL/L (99-107); CREATININE 0.85 MG/DL (0.60-1.10); GLUCOSE 92 MG/DL (70-104); MAGNESIUM 1.6 MG/DL (1.5-2.4); PHOSPHORUS 1.5 MG/DL (2.3-4.5); POTASSIUM 3.1 MMOL/L (3.5-5.1); SODIUM 135 MMOL/L (135-145); TOTAL CARBON DIOXIDE 29.4 MMOL/L (24-32); eGFR > 90 ML/MIN
--- NOTE | 2019-12-13 18:15 | NUR ---
Patient in room PCU 3009. I have received report from Dora HICKEY and had the opportunity to ask questions and assume patient care. Patient is resting, insulin and D10 infusing, will continue to monitor.
[2019-12-13 19:00] VITALS: BP 102/68
[2019-12-13] MEDS ORDERED: MESSAGE TO PHARMACY PO ONE ×2 (20:10)
[2019-12-13] MEDS ORDERED: dextrose ORAL solution 15 GM/59 ML bottle PO PRN ×2 (20:10)
[2019-12-13] MEDS ORDERED: glucagon, human recombinant 1mg kit SUBCUT PRN (20:10)
[2019-12-13] MEDS ORDERED: dextrose 50%-water 50ml dispensing syringe IV PRN ×2 (20:10)
[2019-12-13] MEDS: insulin Lispro (HumaLOG) vial - multi-dose SQ SCH (20:58)
[2019-12-13] MEDS ORDERED: insulin glargine (Lantus) pen - multi-dose SQ SCH (21:00)
--- NOTE | 2019-12-13 21:45 | NUR ---
Dr. Ramirez called to check on patient. He would like D10 stopped and lantus (12 units) to be administered. Stop insulin drip and all fluids 1 hour after lantus is given.
[2019-12-13 23:00] VITALS: BP 112/66
[2019-12-14 03:00] VITALS: BP 111/68
[2019-12-14] MEDS: normal saline 1000ml 1,000 ML IV SCH (03:32)
[2019-12-14] MEDS: Potassium Cl inj 20 MEQ in DEXTROSE 10 % AND 0.45 % NACL 1,000 ML IV SCH (03:32)
[2019-12-14] MEDS: ondansetron/PF 4mg/2ml inj IV PRN (03:59)
[2019-12-14 05:28] LABS: BASOPHILS % (AUTO) 0.7 % (0-1); HEMATOCRIT 37.8 % (42.0-52.0); HEMOGLOBIN 12.9 g/dl (14.0-17.9); LYMPHOCYTES # (AUTO) 1.4 X10'3 (1.1-4.8); LYMPHOCYTES % (AUTO) 47.6 % (21-51); MEAN CORPUSCULAR HEMOGLOBIN 28.5 PG (27.0-31.0); MEAN CORPUSCULAR HGB CONC 34.2 g/dL (33.0-36.5); MEAN CORPUSCULAR VOLUME 83.5 FL (78-98); MEAN PLATELET VOLUME 9.1 FL (7.4-10.4); MONOCYTES # (AUTO) 0.4 X10'3 (0-0.9); MONOCYTES % (AUTO) 13.9 % (2-12); NEUTROPHILS # (AUTO) 1.1 X10'3 (1.8-7.7); NEUTROPHILS % (AUTO) 36.8 % (42-75); PLATELET COUNT 104 X10'3 (140-440); RED BLOOD COUNT 4.53 X10'6 (4.70-6.10); RED CELL DISTRIBUTION WIDTH 13.3 % (11.5-14.5); WHITE BLOOD COUNT 2.9 X10'3 (4.5-11.0)
[2019-12-14 06:00] VITALS: BP 103/65
[2019-12-14 06:09] LABS: ALBUMIN 2.7 G/DL (3.4-5.0); ANION GAP 7 (8-16); BLOOD UREA NITROGEN 4 MG/DL (7-18); BUN/CREATININE RATIO 5.5 (5.4-32.0); CALCIUM 7.6 MG/DL (8.5-10.1); CHLORIDE 103 MMOL/L (99-107); CREATININE 0.73 MG/DL (0.60-1.10); GLUCOSE 264 MG/DL (70-104); MAGNESIUM 1.6 MG/DL (1.5-2.4); POTASSIUM 4.3 MMOL/L (3.5-5.1); SODIUM 136 MMOL/L (135-145); TOTAL CARBON DIOXIDE 25.7 MMOL/L (24-32); eGFR > 90 ML/MIN
--- NOTE | 2019-12-14 06:29 | NUR ---
Problems reprioritized. Patient report given, questions answered & plan of care reviewed with Dora HICKEY.
[2019-12-14 06:54] LABS: PLATELET ESTIMATE DECREASED; TOTAL CELLS COUNTED 100
[2019-12-14 06:55] LABS: SMUDGE CELLS FEW
[2019-12-14] MEDS: K and/or MAG REPLACEMENT MC SCH ×2 (06:58→06:59)
[2019-12-14] MEDS: enoxaparin 40mg/0.4ml syringe SQ SCH (08:00)
[2019-12-14] MEDS: cephalexin 500mg capsule PO SCH ×2 (08:00→13:57)
[2019-12-14] MEDS: insulin Lispro (HumaLOG) vial - multi-dose SQ SCH ×2 (09:13→13:54)
[2019-12-14 11:00] VITALS: BP 106/67
[2019-12-14] MEDS ORDERED: ONDA4TAB6 PO (11:47)
--- NOTE | 2019-12-14 14:22 | NUR ---
F/u for DM consult 12/14: Pt discharged prior to RD being available for verbal reinforcement of diabetes and gastroparesis nutrition therapy education. Pt has received written and verbal education in the past and was provided with written education with RD contact information this visit. Will remain available. DM consult: Pt admitted for DKA with many previous admissions for DKA. Pt admitted with A1c of 10.3. RD healthcare administration internship visited pt at bedside however pt c/o being very nauseated and vomiting. Gastroparesis and DM education with referral to CDE course and RD contact information left at bedside. Will provide verbal review when pt is more stable. Will continue to monitor. Addendum: 12/14/19 at [address] Amended: Links added.
--- NOTE | 2019-12-14 15:00 | NUR ---
[facility] [place] written hand[facility].
== END 2019-12-14 14:00 | disposition home or self-care (01) | DRG 638 ==
LOC: ER 04:11 → ED HOLD 07:53 → PCU 3S 10:15
PROVIDERS: ADMIT Hospitalist; ATTEND Hospitalist
DX: E10.10 Type 1 diabetes mellitus with ketoacidosis without coma (principal); N39.0 Urinary tract infection, site not specified; J10.1 Influenza due to other identified influenza virus with other respiratory manifestations; E86.0 Dehydration; J45.909 Unspecified asthma, uncomplicated; Z88.5 Allergy status to narcotic agent
CPT/HCPCS: 36415; 76937; 80048; 80053; 81003; 82009; 82948; 83036; 83690; 83735; 84100; 84132; 85025; 87081; 96374; 96375; 99291; G0378; J0696; J1170; J1200; J1650; J1815; J2060; J2405; J2765; J3480; J7030

== ENCOUNTER 2020-04-21 04:55 | Inpatient (IN) | payer OTHER ==
[~2020-04-21] VITALS: Ht 182.9 cm; Wt 66.3 kg
[~2020-04-21 04:55] MED LIST changes: +ONDA4TAB6 PO
[2020-04-21] MEDS ORDERED: normal saline 1000ml 1,000 ML IV ONE ×2 (05:20)
[2020-04-21] MEDS ORDERED: ondansetron/PF 4mg/2ml inj IV ONE (05:20)
[2020-04-21 05:28] LABS: BASOPHILS # (AUTO) 0.1 X10'3 (0-0.2); BASOPHILS % (AUTO) 0.8 % (0-1); EOSINOPHILS # (AUTO) 0.5 X10'3 (0-0.9); EOSINOPHILS % (AUTO) 5.4 % (0-6); HEMATOCRIT 43.1 % (42.0-52.0); HEMOGLOBIN 14.2 g/dl (14.0-17.9); LYMPHOCYTES # (AUTO) 2.6 X10'3 (1.1-4.8); MEAN CORPUSCULAR HEMOGLOBIN 29.7 PG (27.0-31.0); MEAN CORPUSCULAR HGB CONC 32.9 g/dL (33.0-36.5); MEAN CORPUSCULAR VOLUME 90.4 FL (78-98); MEAN PLATELET VOLUME 8.3 FL (7.4-10.4); MONOCYTES # (AUTO) 0.5 X10'3 (0-0.9); MONOCYTES % (AUTO) 5.3 % (2-12); NEUTROPHILS % (AUTO) 61.5 % (42-75); PLATELET COUNT 274 X10'3 (140-440); RED BLOOD COUNT 4.77 X10'6 (4.70-6.10); WHITE BLOOD COUNT 9.7 X10'3 (4.5-11.0)
[2020-04-21] MEDS ORDERED: proCHLORperazine 10 MG/2 ml inj IV ONE (05:35)
[2020-04-21 05:57] LABS: ALANINE AMINOTRANSFERASE 30 U/L (12-78); ALBUMIN 3.9 G/DL (3.4-5.0); ALKALINE PHOSPHATASE 85 IU/L (46-116); ANION GAP 23 (8-16); ASPARTATE AMINO TRANSFERASE 21 U/L (10-37); BILIRUBIN,TOTAL 0.7 MG/DL (0.1-1.0); BLOOD UREA NITROGEN 19 MG/DL (7-18); BUN/CREATININE RATIO 13.9 (5.4-32.0); CALCIUM 9.6 MG/DL (8.5-10.1); CHLORIDE 95 MMOL/L (99-107); CREATININE 1.37 MG/DL (0.60-1.10); LIPASE 74 U/L (73-393); POTASSIUM 4.7 MMOL/L (3.5-5.1); SODIUM 132 MMOL/L (135-145); TOTAL PROTEIN 7.8 G/DL (6.4-8.2); eGFR 61 ML/MIN
[2020-04-21 06:01] LABS: GLUCOSE 486 MG/DL (70-104)
[2020-04-21 06:02] LABS: TOTAL CARBON DIOXIDE 13.9 MMOL/L (24-32)
[2020-04-21] MEDS ORDERED: normal saline 1000ml 1,000 ML IV SCH (06:02)
[2020-04-21] MEDS ORDERED: sodium bicarbonate (8.4%) inj. 100 MEQ in dextrose 5% water 500ml 500 ML IV PRN (06:02)
[2020-04-21] MEDS ORDERED: sodium bicarbonate (8.4%) inj. 50 MEQ in dextrose 5% water 500ml 250 ML IV PRN (06:02)
[2020-04-21] MEDS ORDERED: Insulin Reg/NS 100units/100mL 100 ML IV SCH ×3 (06:02→14:03)
[2020-04-21] MEDS ORDERED: insulin regular, human U-100 3ml vial - multi-dose IV PRN (06:05)
[2020-04-21] MEDS ORDERED: metoclopramide 5 mg/ml inj IV ONE (06:10)
[2020-04-21] MEDS: normal saline 1000ml 1,000 ML IV SCH ×7 (06:32→23:38)
[2020-04-21 06:33] LABS: MAGNESIUM 2.1 MG/DL (1.5-2.4); PHOSPHORUS 3.3 MG/DL (2.3-4.5)
[2020-04-21] MEDS ORDERED: ketorolac trometh. 30mg/ml inj. IV ONE (07:10)
--- NOTE | 2020-04-21 07:10 | NUR ---
pt c/o abd pain ,notified dr sanchez order to give 15 mg iv once for pain.will admin to pt as it get verified from pharmacy.
[2020-04-21] MEDS ORDERED: potassium CL 20mEq in D5-1/2NS 1,000 ML IV PRN (07:38)
[2020-04-21] MEDS ORDERED: magnesium hydroxide 30ml (MOM) UD suspension PO PRN (07:40)
[2020-04-21] MEDS ORDERED: sodium phosphate inj. 15 MMOL in dextrose 5%-water 250 ML IV PRN (07:40)
[2020-04-21] MEDS ORDERED: acetaminophen 325mg tablet PO PRN (07:40)
[2020-04-21] MEDS ORDERED: sodium phosphate inj. 30 MMOL in dextrose 5%-water 250 ML IV PRN (07:40)
[2020-04-21] MEDS ORDERED: Neutra Phos packet PO PRN (07:40)
[2020-04-21] MEDS ORDERED: mag hydrox/Alum hydrox/simeth 30ml oral suspension PO PRN (07:40)
[2020-04-21] MEDS ORDERED: potassium CL 10mEq/100ml bag 100 ML IV PRN ×2 (07:40)
[2020-04-21] MEDS ORDERED: ondansetron/PF 4mg/2ml inj IV PRN (07:40)
[2020-04-21] MEDS ORDERED: potassium Cl 20 mEq SR tablet PO PRN ×2 (07:40)
[2020-04-21] MEDS ORDERED: normal saline 1000ML IV soln IVB ONE (07:45)
--- NOTE | 2020-04-21 07:45 | NUR ---
bld sugar 288 checked by nursing faculty pablo.
[2020-04-21] MEDS: heparin, porcine 5000 units/ml vial SQ SCH ×2 (08:00→20:00)
[2020-04-21] MEDS: K and/or MAG REPLACEMENT MC SCH ×2 (08:00→20:00)
[2020-04-21 08:19] LABS: CLARITY,URINE CLEAR (Clear); COLOR,URINE STRAW (Yellow); GLUCOSE, URINE >=1000 mg/dl (Neg); KETONES,URINE >=80 mg/dl (Neg); LEUKOCYTE ESTERASE ,URINE NEGATIVE (Neg); NITRITES, URINE NEGATIVE (Neg); OCCULT BLOOD,URINE NEGATIVE (Neg); PH,URINE 5.5 (4.8-8.0); PROTEIN,URINE NEGATIVE (Neg); UROBILINOGEN,URINE 0.2 E.U/dL (0.2-1.0)
[2020-04-21 08:21] LABS: UA COLLECTION TYPE VOIDED
--- NOTE | 2020-04-21 08:21 | NUR ---
at 0815v stoped the insulin drip as per protocol pt b.s 234.verified with nurse monik ty.
[2020-04-21 08:24] LABS: BACTERIA,URINE NONE SEEN /HPF (Neg); MUCUS STRANDS NONE SEEN /LPF (Neg); RBC,URINE NONE SEEN /HPF (0-2); SQUAMOUS EPITHELIAL CELL,UR FEW /LPF (FEW); WBC,URINE NONE SEEN /HPF (0-4)
[2020-04-21] MEDS: potassium CL 20mEq in D5-1/2NS 1,000 ML IV PRN ×3 (08:42→19:58)
--- NOTE | 2020-04-21 09:16 | NUR ---
.\pt b.s 254,iv insulin drip started as per charge nurse kimberley to recheck it as we had stopped it as per nurse reeys but as per protocol cont with insulin drip discussed with charge nurse kimberley as per charge nurse keep it stop till now and recheck b.s at 0900 if b.s dropping discuss with dr garcia to clarify the insulin drip .
--- NOTE | 2020-04-21 09:57 | NUR ---
Patient in room ED 9. I have received report from Abhay HICKEY from ER department and had the opportunity to ask questions and assume patient care. Patient able to transfer to unit per MD orders. Patient will transfer to room 3018/B
[2020-04-21 10:23] LABS: ALBUMIN 2.8 G/DL (3.4-5.0); ANION GAP 19 (8-16); BLOOD UREA NITROGEN 16 MG/DL (7-18); BUN/CREATININE RATIO 14.7 (5.4-32.0); CALCIUM 7.4 MG/DL (8.5-10.1); CHLORIDE 111 MMOL/L (99-107); CREATININE 1.09 MG/DL (0.60-1.10); GLUCOSE 238 MG/DL (70-104); SODIUM 142 MMOL/L (135-145); eGFR 80 ML/MIN
[2020-04-21 10:26] LABS: POTASSIUM 4.7 MMOL/L (3.5-5.1)
[2020-04-21 10:28] LABS: TOTAL CARBON DIOXIDE 11.8 MMOL/L (24-32)
--- NOTE | 2020-04-21 10:33 | NUR ---
Patient in room 3018B tolerating well. VSS BP:106/55, HR:111, RR:18, Temp 98.8 Oral, Pain 5/10 in throat, O2:98%RA, bb 203, Insulin drip on 5, d5 1/2 ns @250. Patient is awake and in bed orientated to room. Tele on $50 Addendum: 04/21/20 at 1035 by Irma Hoffmann RN On tele #50 applied, 2 Ivs. Patient is stable at this time. Will continue to monitor.
--- NOTE | 2020-04-21 10:42 | NUR ---
PAGER ID: [phone] MESSAGE: [id number] [place]. FYI, critical CO2 of 11.8, patient is in the room. Thanks, Regina
[2020-04-21 11:00] VITALS: BP 94/60
[2020-04-21] MEDS ORDERED: WATER IV PRN (11:00)
[2020-04-21] MEDS ORDERED: SODIUM BICARBONATE IV PRN (11:00)
[2020-04-21] MEDS ORDERED: DEXTROSE 5% IV PRN (11:00)
[2020-04-21] MEDS ORDERED: sodium bicarbonate (8.4%) inj. 50 MEQ in dextrose 5%-water 250 ML IV PRN (11:00)
[2020-04-21 11:20] LABS: ABG BASE EXCESS -17.8 mmol/L (-2.0-3.0); ABG HCO3 9.3 mmol/L (22.0-26.0); ABG PCO2 (T) 26.7 mmHg (35.0-45.0); ABG PH (T) 7.159 (7.350-7.450); ABG PO2 (T) 99.1 mmHg (83-108); FCOHb 0.3 % (0.5-1.5); FMetHb 0.2 % (0.3-1.12); FO2Hb 96.5 % (94-100)
[2020-04-21 12:12] LABS: ALBUMIN 2.9 G/DL (3.4-5.0); ANION GAP 14 (8-16); BLOOD UREA NITROGEN 14 MG/DL (7-18); BUN/CREATININE RATIO 12.6 (5.4-32.0); CALCIUM 7.5 MG/DL (8.5-10.1); CHLORIDE 113 MMOL/L (99-107); CREATININE 1.11 MG/DL (0.60-1.10); GLUCOSE 154 MG/DL (70-104); PHOSPHORUS 2.1 MG/DL (2.3-4.5); POTASSIUM 4.1 MMOL/L (3.5-5.1); SODIUM 142 MMOL/L (135-145); eGFR 78 ML/MIN
[2020-04-21 12:14] LABS: TOTAL CARBON DIOXIDE 14.7 MMOL/L (24-32)
--- NOTE | 2020-04-21 13:56 | NUR ---
SPoke to Dr. Torres, new order to decrease insulin to 3 and continue with the DKA protocol also for throat lozenges. Will continue to monitor.
--- NOTE | 2020-04-21 14:08 | NUR ---
Spoke with pharmacist regarding the changed order of the insulin from 5 to 3. Pharmacist is unable to bring a new label up at this time. Will not be able to scan the bag for rate change. 2RN witnessed the change and it has been documented in the IV spreadsheet. Will continue to monitor.
[2020-04-21 15:00] VITALS: BP 101/52
[2020-04-21 16:20] LABS: ALBUMIN 2.7 G/DL (3.4-5.0); ANION GAP 12 (8-16); BLOOD UREA NITROGEN 13 MG/DL (7-18); CALCIUM 7.8 MG/DL (8.5-10.1); CHLORIDE 111 MMOL/L (99-107); CREATININE 1.08 MG/DL (0.60-1.10); GLUCOSE 158 MG/DL (70-104); PHOSPHORUS 2.7 MG/DL (2.3-4.5); POTASSIUM 4.1 MMOL/L (3.5-5.1); SODIUM 143 MMOL/L (135-145); TOTAL CARBON DIOXIDE 20.2 MMOL/L (24-32); eGFR 81 ML/MIN
[2020-04-21] MEDS: benzocaine/menthol oral lozeng 1 EACH BOX MM PRN ×2 (16:43→22:18)
--- NOTE | 2020-04-21 16:48 | NUR ---
Pt presented to ED with c/o n/v/abdominal pain and per H&P pt reports having insulin pump with stable blood sugar, reports no recent sickness. Admitted with ROSA, DKA, now on insulin drip with IV fluids. Last admission with DKA in November and pt was discharged prior to being seen by RD for verbal review however written education for DM and gastroparesis was left at bedside. Has multiple previous admission with DKA. History of A1c ranges between 8.7-14.6 in the past 10 years with most recent A1c at 10.3 on 12/12/2019; blood glucose was 427 in triage; per ED note patient reports taking insulin as prescribed. Needs new A1c. Is currently NPO. Recommend: 1. advance diet as medically indicated to carb controlled 2. need new A1c 3. Written and verbal education for DM and gastroparesis prior to discharge 4. wt per rx Addendum: 04/21/20 at [address] Amended: Links added.
[2020-04-21 18:00] LABS: HEMOGLOBIN A1C 10.6 % (4.5-6.2)
--- NOTE | 2020-04-21 18:20 | NUR ---
Patient in room PCU 3018. I have received report from RUPERTO Tapia and had the opportunity to ask questions and assume patient care.
--- NOTE | 2020-04-21 18:43 | NUR ---
Problems reprioritized. Patient report given, questions answered & plan of care reviewed with Leslie HICKEY. Patient stable at transfer of care.
[2020-04-21 19:00] VITALS: BP 93/61
[2020-04-21 19:45] LABS: ALANINE AMINOTRANSFERASE 18 U/L (12-78); ALBUMIN 2.6 G/DL (3.4-5.0); ALKALINE PHOSPHATASE 57 IU/L (46-116); ANION GAP 8 (8-16); ASPARTATE AMINO TRANSFERASE 12 U/L (10-37); BILIRUBIN,TOTAL 0.3 MG/DL (0.1-1.0); BLOOD UREA NITROGEN 10 MG/DL (7-18); BUN/CREATININE RATIO 9.1 (5.4-32.0); CALCIUM 7.4 MG/DL (8.5-10.1); CHLORIDE 112 MMOL/L (99-107); GLUCOSE 153 MG/DL (70-104); POTASSIUM 3.6 MMOL/L (3.5-5.1); SODIUM 143 MMOL/L (135-145); TOTAL CARBON DIOXIDE 22.9 MMOL/L (24-32); TOTAL PROTEIN 5.3 G/DL (6.4-8.2); eGFR 79 ML/MIN
[2020-04-21] MEDS ORDERED: insulin glargine (Lantus) pen - multi-dose SQ SCH (21:00)
--- NOTE | 2020-04-21 21:38 | NUR ---
sent to [facility] PAGER ID: [phone] MESSAGE: room 3018B Jet Chance: DX: DKA please call regarding insulin drip thank you, Leslie [phone]
[2020-04-21] MEDS ORDERED: glucagon, human recombinant 1mg kit SUBCUT PRN (21:45)
[2020-04-21] MEDS ORDERED: dextrose ORAL solution 15 GM/59 ML bottle PO PRN ×2 (21:45)
[2020-04-21] MEDS ORDERED: insulin Lispro (HumaLOG) vial - multi-dose SQ SCH (21:45)
[2020-04-21] MEDS ORDERED: MESSAGE TO PHARMACY PO ONE (21:45)
[2020-04-21] MEDS ORDERED: dextrose 50%-water 50ml dispensing syringe IV PRN ×2 (21:45)
[2020-04-21 23:25] VITALS: BP 101/64
[2020-04-22 01:18] LABS: ALBUMIN 2.6 G/DL (3.4-5.0); ANION GAP 8 (8-16); BLOOD UREA NITROGEN 11 MG/DL (7-18); BUN/CREATININE RATIO 11.6 (5.4-32.0); CALCIUM 8.1 MG/DL (8.5-10.1); CHLORIDE 114 MMOL/L (99-107); CREATININE 0.95 MG/DL (0.60-1.10); GLUCOSE 173 MG/DL (70-104); POTASSIUM 3.6 MMOL/L (3.5-5.1); SODIUM 145 MMOL/L (135-145); TOTAL CARBON DIOXIDE 23.1 MMOL/L (24-32); eGFR > 90 ML/MIN
[2020-04-22 03:30] VITALS: BP 102/65
--- NOTE | 2020-04-22 03:36 | NUR ---
Sent to [facility] PAGER ID: [phone] MESSAGE: ROOM 3018 B Jet Chance: DX: DKA Blood sugar is slowly climbing back up and is 189. He is off the drip, labs are normal. Should we give a small dose of Humalog to keep his sugar controlled? Thanks, Leslie [phone]
[2020-04-22] MEDS: normal saline 1000ml 1,000 ML IV SCH ×2 (03:38→07:38)
[2020-04-22] MEDS ORDERED: insulin Lispro (HumaLOG) vial - multi-dose SQ ONE (03:40)
--- NOTE | 2020-04-22 06:09 | NUR ---
Problems reprioritized. Patient report given, questions answered & plan of care reviewed with Regina Rosario RN .
--- NOTE | 2020-04-22 06:14 | NUR ---
Patient in room PCU 3018. I have received report from Leslie HICKEY and had the opportunity to ask questions and assume patient care. Patient resting in bed at this time, offers no complaints, will continue to monitor.
[2020-04-22 06:18] LABS: BASOPHILS # (AUTO) 0.1 X10'3 (0-0.2); BASOPHILS % (AUTO) 0.7 % (0-1); EOSINOPHILS # (AUTO) 0.4 X10'3 (0-0.9); EOSINOPHILS % (AUTO) 5.1 % (0-6); HEMATOCRIT 34.2 % (42.0-52.0); HEMOGLOBIN 11.5 g/dl (14.0-17.9); LYMPHOCYTES % (AUTO) 36.3 % (21-51); MEAN CORPUSCULAR HEMOGLOBIN 29.7 PG (27.0-31.0); MEAN CORPUSCULAR HGB CONC 33.6 g/dL (33.0-36.5); MEAN CORPUSCULAR VOLUME 88.6 FL (78-98); MEAN PLATELET VOLUME 7.9 FL (7.4-10.4); MONOCYTES # (AUTO) 0.5 X10'3 (0-0.9); MONOCYTES % (AUTO) 6.4 % (2-12); NEUTROPHILS # (AUTO) 4.3 X10'3 (1.8-7.7); NEUTROPHILS % (AUTO) 51.5 % (42-75); PLATELET COUNT 196 X10'3 (140-440); RED BLOOD COUNT 3.86 X10'6 (4.70-6.10); WHITE BLOOD COUNT 8.3 X10'3 (4.5-11.0)
[2020-04-22 06:28] LABS: ALBUMIN 2.5 G/DL (3.4-5.0); ANION GAP 8 (8-16); BLOOD UREA NITROGEN 10 MG/DL (7-18); BUN/CREATININE RATIO 9.6 (5.4-32.0); CALCIUM 7.6 MG/DL (8.5-10.1); CHLORIDE 113 MMOL/L (99-107); CREATININE 1.04 MG/DL (0.60-1.10); GLUCOSE 113 MG/DL (70-104); PHOSPHORUS 2.2 MG/DL (2.3-4.5); POTASSIUM 3.3 MMOL/L (3.5-5.1); SODIUM 144 MMOL/L (135-145); TOTAL CARBON DIOXIDE 23.2 MMOL/L (24-32); eGFR 84 ML/MIN
[2020-04-22 07:00] VITALS: BP 102/64
[2020-04-22] MEDS: K and/or MAG REPLACEMENT MC SCH (08:00)
[2020-04-22] MEDS: heparin, porcine 5000 units/ml vial SQ SCH (08:00)
--- NOTE | 2020-04-22 11:05 | NUR ---
Spoke with patient regarding his diabetes and who he is seeing as a PCP. Patient stated that he doesn't have a PCP at this time and is "working on it". I offered to have case management work with him and he declined to work with them. He said he will get his own and he will follow up on his own.
--- NOTE | 2020-04-22 12:17 | NUR ---
DM consult: new A1c 10.6, met with patient at bedside and extensively verbally reviewed written gastroparesis handout and pt discussed dietary habits he would like to change to help manage his DM; also provided with written DM education handout. Addendum: 04/22/20 at [address] Amended: Links added.
--- NOTE | 2020-04-22 12:19 | NUR ---
Patient discharged home reviewed packet before signing and being sent with patient. Patient was educated on DKA and importance of following up with a PCP which he is currently working on obtaining at this time. All belongings were sent home with patient. PIV's were removed with cannula intact, tele monitoring was d/c'd, no new RX were ordered. Patient declined to be wheeled out, but was walked by RN and patient left via private vehicle.
[2020-04-22] MEDS ORDERED: insulin glargine (Lantus) pen - multi-dose SQ SCH (21:00)
== END 2020-04-22 12:00 | disposition home or self-care (01) | DRG 637 ==
LOC: ER 04:55 → ED HOLD 07:38 → PCU 3S 10:10
PROVIDERS: ADMIT Family Medicine; ATTEND Family Medicine
DX: E10.10 Type 1 diabetes mellitus with ketoacidosis without coma (principal); N17.0 Acute kidney failure with tubular necrosis; E87.1 Hypo-osmolality and hyponatremia; E87.4 Mixed disorder of acid-base balance; E10.43 Type 1 diabetes mellitus with diabetic autonomic (poly)neuropathy; E86.0 Dehydration; J45.909 Unspecified asthma, uncomplicated; K31.84 Gastroparesis; Z79.4 Long term (current) use of insulin; Z80.3 Family history of malignant neoplasm of breast; Z85.118 Personal history of other malignant neoplasm of bronchus and lung; Z96.41 Presence of insulin pump (external) (internal)
CPT/HCPCS: 36415; 36600; 80048; 80053; 81001; 82803; 82948; 83036; 83690; 83735; 84100; 85018; 85025; 87081; 94760; 96374; 96375; 99285; G0378; J0780; J1815; J1885; J2405; J2765; J7030